=== PATIENT | male | born 1960 | race Caucasian/White ===

== ENCOUNTER 2017-04-22 09:14 | Emergency (ER) | payer MEDICARE ==
[2017-04-22 09:23] VITALS: BP 149/79; PULSE 74; RESP 16; TEMP 98.3; O2SAT 96
[2017-04-22] MEDS ORDERED: CARV12.52 PO (09:54)
[2017-04-22] MEDS ORDERED: FISHCAP4 PO (09:54)
[2017-04-22] MEDS ORDERED: GLYB1TAB94 PO (09:54)
--- NOTE | 2017-04-22 10:01 | PD ---
HPI Chief Complaint: Medical Clearance Time Seen by Provider: 09:26 Travel History International Travel<30 days: No Contact w/Intl Traveler<30days: No Traveled to known affect area: No History of Present Illness HPI patient donated sample for blood donation testing/screening. on apr 16 received letter which stated he had a positive screening test for syphilis. patient himself denies any symptoms, no sores, no ulcers, no fever, no rash, no body aches, no complaint at all. patient came here out of concern (he does not have pcp). Allergies-Medications (Allergen,Severity, Reaction): Coded Allergies: No Known Allergies (Unverified , 04/22/17) Reported Meds & Prescriptions Reported Meds & Active Scripts Active Reported Fish Oil + D3 (Fish Oil-Cholecalciferol) 1,200-1,000 Mg-Unit Cap 1 Cap PO DAILY Carvedilol 12.5 Mg Tab 12.5 Mg PO BID Glyburide-Metformin 5-500 Mg Tab 1 Tab PO BID Take with a meal Review of Systems Except as stated in HPI: all other systems reviewed are Neg Physical Exam Narrative GENERAL: SKIN: Warm and dry. HEAD: Atraumatic. Normocephalic. EYES: Pupils equal and round. No scleral icterus. No injection or drainage. ENT: No nasal bleeding or discharge. Mucous membranes pink and moist. NECK: Trachea midline. No JVD. CARDIOVASCULAR: Regular rate and rhythm. RESPIRATORY: No accessory muscle use. Clear to auscultation. Breath sounds equal bilaterally. GASTROINTESTINAL: Abdomen soft, non-tender, nondistended. MUSCULOSKELETAL: Extremities without clubbing, cyanosis, or edema. No obvious deformities. NEUROLOGICAL: Awake and alert. No obvious cranial nerve deficits. Motor grossly within normal limits. Five out of 5 muscle strength in the arms and legs. Normal speech. PSYCHIATRIC: Appropriate mood and affect; insight and judgment normal. Data Data Last Documented VS Vital Signs Date Time Temp Pulse Resp B/P (MAP) Pulse Ox O2 Delivery O2 Flow Rate FiO2 04/22/17 09:50 76 16 04/22/17 09:23 98.3 149/79 (102) 96 MDM Medical Decision Making Medical Screen Exam Complete: Yes Emergency Medical Condition: Yes Medical Record Reviewed: Yes Differential Diagnosis n/a Narrative Course i contacted nery personally and spoke with donor advocacy who were able to provide additional information, patient's screening sts syphillis test was reactive HOWEVER the confirmatory test by MARIELENA immunoassay was NEGATIVE. therefore, patient had a false positive, and patient just needs to contact [facility] to be reinstated as a donor. this info was shared with patient who understandably was greatly relieved Diagnosis Primary Impression: medical clearance Patient Instructions: General Instructions Additional Instructions: I spoke with NERY, who confirmed that your confirmatory tests were NEGATIVE , you are clear and just need to contact [facility] to get reinstated into donor list. Disposition: 01 DISCHARGE HOME Condition: Irving Pena MD Apr 22, 2017 10:01
[2017-04-22 10:14] VITALS: BP 130/81; TEMP 97.8
== END 2017-04-22 10:14 | disposition home or self-care (01) ==
LOC: NEPD 09:14
DX: Z76.89 Persons encountering health services in other specified circumstances (principal); R76.8 Other specified abnormal immunological findings in serum
CPT/HCPCS: 99282